=== PATIENT | female | born 1970 ===

== ENCOUNTER 2017-03-31 16:04 | Observation (INO) | payer OTHER ==
[2017-03-31 16:04] VITALS: BMI 35.6
[2017-03-31] MEDS ORDERED: Sodium Chloride 0.9% 1,000 ML IV STA (17:11)
--- NOTE | 2017-03-31 17:31 | ED PDOC ---
HPI: Abdomen Time Seen by Provider: 03/31/17 16:33 Chief Complaint (Nursing): Abdominal Pain Chief Complaint (Provider): Left Lower Adominal Pain History Per: Patient History/Exam Limitations: no limitations Onset/Duration Of Symptoms: Gradual Outside of [place] travel?: No Current Symptoms Are (Timing): Constant Quality Of Discomfort: "Pain" Additional Complaint(s): Natalie Dacosta, a 46 year old female,with a past medical history of kidney stones presents to the ED complaining of left lower quadrant abdominal pain. The patient states that the pain is constant and started around 11pm yesterday. She says that the pain is radiating down the side of her upper thigh. The patient states she has not taken anything for the pain. She states that she had similar pain within the last 3 months and it typically resolves on its spontaneously but this time around its radiating down her legs and that has not happened before. The patient states that she was advised by Dr. Nickerson to get an ultrasound but due to insurance issues she unable to do so. Unfortunately doctor Dr. Nickerson is now and the patient has no PMD.Denies nausea vomiting diarrhea or constipation, urinary symptoms, vaginal discharge/bleeding. Abnormal Vaginal Bleeding: No Past Medical History Reviewed: Historical Data, Nursing Documentation, Vital Signs Vital Signs: Last Vital Signs Temp 98 F 03/31/17 20:39 Pulse 74 03/31/17 16:47 Resp 18 03/31/17 16:47 BP 111/72 03/31/17 16:47 Pulse Ox 98 03/31/17 18:36 - Medical History PMH: Kidney Stones - Surgical History Surgical History: Cholecystectomy - Family History Family History: States: Diabetes (sister) - Social History Current smoker - smoking cessation education provided: No Ex-Smoker (has not smoked in the last 12 months): No Alcohol: None Drugs: Denies - Home Medications Home Medications: Ambulatory Orders Medication Instructions Recorded Albuterol HFA [Ventolin HFA 90 2 puff IH [id number] #1 inh 05/25/16 mcg/actuation (8 g)] Promethazine/Codeine 5 ml PO Q6 #100 ml 05/25/16 [Phenergan/Codeine Oral Syrup] - Allergies Allergies/Adverse Reactions: Allergies Allergy/AdvReac Type Severity Reaction Status Date / Time No Known Allergies Allergy Verified 03/31/17 16:18 Review of Systems ROS Statement: Except As Marked, All Systems Reviewed And Found Negative Gastrointestinal: Positive for: Abdominal Pain (left lower quadrant abdominal pain). Negative for: Nausea, Vomiting, Diarrhea, Constipation Genitourinary Female: Negative for: Dysuria, Frequency, Incontinence, Hematuria , Vaginal Discharge, Vaginal Bleeding Physical Exam - Reviewed Nursing Documentation Reviewed: Yes Vital Signs Reviewed: Yes - Physical Exam Appears: Positive for: Non-toxic, In Acute Distress Head Exam: Positive for: ATRAUMATIC, NORMOCEPHALIC Skin: Positive for: Warm, Dry Eye Exam: Positive for: EOMI, PERRL ENT: Negative for: Pharyngeal Erythema, Tonsillar Exudate Neck: Positive for: Painless ROM, Supple Cardiovascular/Chest: Positive for: Regular Rate, Rhythm. Negative for: Murmur Respiratory: Positive for: Normal Breath Sounds. Negative for: Wheezing Gastrointestinal/Abdominal: Positive for: Bowel Sounds, Soft, Tenderness (LLQ ttp). Negative for: Mass, Distended, Guarding, Other (chavarria's and mcburney's) Back: Positive for: Normal Inspection. Negative for: L CVA Tenderness, R CVA Tenderness Extremity: Positive for: Normal ROM. Negative for: Deformity Lymphatic: Negative for: Adenopathy Neurologic/Psych: Positive for: Alert. Negative for: Motor/Sensory Deficits - Laboratory Results Result Diagrams: 03/31/17 17:37 03/31/17 17:37 - ECG O2 Sat by Pulse Oximetry: 98 (RA) Pulse Ox Interpretation: Normal Medical Decision Making Medical Decision Makin Initial Impression: 46 year old female presenting with left lower quadrant pain Differential: Ovarian Cyst or torsion, Fibroid, Colitis, Diverticulitis, Hernia Initial plan: * Comp Metabolic Panel * Lipase * Upreg * Udip * CBC * NS 1000mls IV 1000mls/hr * Toradol 15mg IV * Admit 1716 * US Transvaginal * Reevaluation 1716 Patient will be placed on ED observation Scribe Attestation Documented by Ami Garza acting as a scribe for Jihan Okeefe MD. Provider Attestation: All medical record entries made by the Scribe were at my direction and personally dictated by me. I have reviewed the chart and agree that the record accurately reflects my personal performance of the history, physical exam, medical decision making, and the department course for this patient. I have also personally directed, reviewed, and agree with the discharge instructions and disposition. ED OBSERVATION Date of observation admission: 03/31/17 Time of observation admission: 17:16 - Observation admission statement Patient is being placed in observation because:: Intensive abdominal workup and pending US. - Progress Note Progress Note: 03/31/17 18:36 Accession No. : [id number] Patient Name / ID : PRANEETH ARBOLEDA / [id number] Exam Date : 03/31/2017 17:57:46 ( Approved ) Study Comment : Sex / Age : F / 46Y Creator : Nya Grigsby MD Dictator : Glass Beveller : Milk Delivery Driver : Nya Grigsby MD Approver2 : Report Date : 03/31/2017 18:20:06 My Comment : HISTORY: LEFT sided pelvic pain COMPARISON: Transvaginal/ pelvic ultrasound performed 02/25/15 TECHNIQUE: Transvaginal pelvic ultrasound FINDINGS: UTERUS: Measures 7.5 x 3.3 x 4.3 cm. ENDOMETRIUM: Measures 3 mm in diameter. CERVIX: No cervical abnormality identified. RIGHT OVARY: Measures 1.7 x 1.0 x 1.9 cm. Blood flow is demonstrated. LEFT OVARY: Measures 2.2 x 1.5 x 1.7 cm. Blood flow is demonstrated. FREE FLUID: No significant free fluid noted. OTHER FINDINGS: None. IMPRESSION: Unremarkable pelvic ultrasound as above. 630p DW pt findings. CT ordered. Pt stable. [facility] Division of Radiology [address] [place] [address] Tel. no. Patient Name: NATALIE DACOSTA Pt. Address: [address] [place] [address] Rec #: [id number] [place] [address]: Maldonado ARCE, Jihan Ozuna Pt CELL Order Location: DEB : 1970 Female Age: 46 Order #: [id number] Reason for exam: LLQ pain CT Scan ABD PELVIS IV CONTRAST ONLY Exam Date: 03/31/17 This imaging exam was performed at [facility] EXAM: CT Abdomen and Pelvis With Intravenous Contrast CLINICAL HISTORY: 46 years old, female; Pain; Abdominal pain; Generalized; Additional info: Llq pain TECHNIQUE: Axial computed tomography images of the abdomen and pelvis with intravenous contrast. This CT exam was performed using one or more of the following dose reduction techniques: automated exposure control, adjustment of the mA and/or kV according to patient size, and/or use of iterative reconstruction technique. Coronal and sagittal reformatted images were created and reviewed. CONTRAST: 95 mL of omnipaque 300 administered intravenously. EXAM DATE/TIME: 03/31/2017 6:34 PM COMPARISON: No relevant prior studies available. FINDINGS: LIMITATIONS: Mild to moderate streak/motion artifact. LOWER THORAX: Small hiatal hernia. ABDOMEN: LIVER: Fatty infiltration of the liver. GALLBLADDER AND BILE DUCTS: Cholecystectomy clips. PANCREAS: No CT evidence of acute pancreatitis. SPLEEN: No acute abnormality of the spleen identified. ADRENALS: No acute abnormality of the adrenal glands identified. KIDNEYS AND URETERS: No acute abnormality of the kidneys identified. No evidence of significant hydrouereteronephrosis. STOMACH AND BOWEL: No acute abnormality of the stomach, small bowel or colon identified. No evidence of bowel obstruction. APPENDIX: Appendix is seen, and is within normal limits in appearance. PELVIS: BLADDER: No acute abnormality of the bladder identified. REPRODUCTIVE:No acute abnormality of the reproductive organs is seen. No acute abnormality of the uterus identified. No evidence of large adnexal masses. ABDOMEN and PELVIS: INTRAPERITONEAL SPACE: No evidence of free intraperitoneal air or fluid. BONES/JOINTS: No acute fractures or other acute bony abnormality noted. SOFT TISSUES: No acute abnormality of the visualized soft tissues is seen. VASCULATURE: No evidence of abdominal aortic aneurysm. No evidence of periaortic hemorrhage. LYMPH NODES: No evidence of diffuse lymphadenopathy. IMPRESSION: - No evidence of significant acute process. No definite cause for pain identified. - See above for remaining findings. Dictated By: Carolynn Rueda MD Dictated Date/Time: 03/31/172037 Signed By: Carolynn Rueda MD Date Signed: 2037 Transcribed By: LEN Transcribe Date/Time : 03/31/172037 [facility]/SRUTHI DW pt findings and plan of care. Pt stable for dc. Pain improved. Naprosmartin and shiyl prn. f/u clinic. Disposition - Clinical Impression Clinical Impression: Abdominal pain, Groin strain Counseled Patient/Family Regarding: Studies Performed, Diagnosis, Need For Followup, Rx Given - Disposition Disposition Time: 17:15 Condition: IMPROVED
[2017-03-31 17:48] LABS: BASO % 0.5 % (0.0-2.0); EOS # 0.1 K/uL (0.0-0.7); EOS % 1.6 % (0.0-4.0); LYMPH # 2.4 K/uL (1.0-4.3); LYMPH % 32.5 % (20.0-40.0); MEAN CELL VOLUME 86.2 fl (81.0-99.0); MEAN CORPUSCULAR HEMOGLOBIN 30.7 pg (27.0-31.0); MEAN CORPUSCULAR HGB CONC 35.6 g/dL (33.0-37.0); MEAN PLATELET VOLUME 8.7 fl (7.2-11.7); MONO # 0.5 K/uL (0.0-0.8); NEUT # 4.2 K/uL (1.8-7.0); NEUT % 58.4 % (50.0-75.0); RBC 3.91 Mil/uL (3.80-5.20); RED CELL DISTRIBUTION WIDTH 12.6 % (11.5-14.5); WHITE BLOOD COUNT 7.2 K/uL (4.8-10.8)
[2017-03-31 18:04] LABS: ALB/GLOB RATIO 1.4 (1.0-2.1); ALBUMIN 4.3 g/dL (3.5-5.0); ALT/SGPT 49 U/L (9-52); AST/SGOT 38 U/L (14-36); BLOOD UREA NITROGEN 13 mg/dl (7-17); CALCIUM 9.3 mg/dL (8.4-10.2); GFR AFRICAN-AMERICAN > 60; GFR NON-AFRICAN AMERICAN > 60; LIPASE 136 U/L (23-300)
--- NOTE | 2017-03-31 18:22 | US ---
HISTORY: LEFT sided pelvic pain COMPARISON: Transvaginal/ pelvic ultrasound performed 02/25/15 TECHNIQUE: Transvaginal pelvic ultrasound FINDINGS: UTERUS: Measures 7.5 x 3.3 x 4.3 cm. ENDOMETRIUM: Measures 3 mm in diameter. CERVIX: No cervical abnormality identified. RIGHT OVARY: Measures 1.7 x 1.0 x 1.9 cm. Blood flow is demonstrated. LEFT OVARY: Measures 2.2 x 1.5 x 1.7 cm. Blood flow is demonstrated. FREE FLUID: No significant free fluid noted. OTHER FINDINGS: None. IMPRESSION: Unremarkable pelvic ultrasound as above.
[2017-03-31] MEDS ORDERED: Iohexol 300 100 ML IJ ONE (18:42)
[2017-03-31] MEDS ORDERED: Sodium Chloride 0.9% 50 ML IV ONE (18:45)
[2017-03-31 20:39] VITALS: TEMP 98
--- NOTE | 2017-03-31 20:39 | CT ---
EXAM: CT Abdomen and Pelvis With Intravenous Contrast CLINICAL HISTORY: 46 years old, female; Pain; Abdominal pain; Generalized; Additional info: Llq pain TECHNIQUE: Axial computed tomography images of the abdomen and pelvis with intravenous contrast. This CT exam was performed using one or more of the following dose reduction techniques: automated exposure control, adjustment of the mA and/or kV according to patient size, and/or use of iterative reconstruction technique. Coronal and sagittal reformatted images were created and reviewed. CONTRAST: 95 mL of omnipaque 300 administered intravenously. EXAM DATE/TIME: 03/31/2017 6:34 PM COMPARISON: No relevant prior studies available. FINDINGS: LIMITATIONS: Mild to moderate streak/motion artifact. LOWER THORAX: Small hiatal hernia. ABDOMEN: LIVER: Fatty infiltration of the liver. GALLBLADDER AND BILE DUCTS: Cholecystectomy clips. PANCREAS: No CT evidence of acute pancreatitis. SPLEEN: No acute abnormality of the spleen identified. ADRENALS: No acute abnormality of the adrenal glands identified. KIDNEYS AND URETERS: No acute abnormality of the kidneys identified. No evidence of significant hydrouereteronephrosis. STOMACH AND BOWEL: No acute abnormality of the stomach, small bowel or colon identified. No evidence of bowel obstruction. APPENDIX: Appendix is seen, and is within normal limits in appearance. PELVIS: BLADDER: No acute abnormality of the bladder identified. REPRODUCTIVE:No acute abnormality of the reproductive organs is seen. No acute abnormality of the uterus identified. No evidence of large adnexal masses. ABDOMEN and PELVIS: INTRAPERITONEAL SPACE: No evidence of free intraperitoneal air or fluid. BONES/JOINTS: No acute fractures or other acute bony abnormality noted. SOFT TISSUES: No acute abnormality of the visualized soft tissues is seen. VASCULATURE: No evidence of abdominal aortic aneurysm. No evidence of periaortic hemorrhage. LYMPH NODES: No evidence of diffuse lymphadenopathy. IMPRESSION: - No evidence of significant acute process. No definite cause for pain identified. - See above for remaining findings.
[2017-03-31 20:57] VITALS: BP 117/57; PULSE 60; RESP 16; O2SAT 100
== END 2017-03-31 21:23 | disposition home or self-care (01) ==
LOC: H.ER 16:04 → H.EROBSV 17:16
PROVIDERS: ADMIT Emergency Medicine; ATTEND Emergency Medicine
DX: R10.32 Left lower quadrant pain (principal); Z87.442 Personal history of urinary calculi; S39.011A Strain of muscle, fascia and tendon of abdomen, initial encounter; X58.XXXA Exposure to other specified factors, initial encounter; Y93.9 Activity, unspecified; Y92.9 Unspecified place or not applicable
CPT/HCPCS: 36415; 74177; 76830; 80053; 81025; 83690; 85025; 99284; G0378; J1885; J7040; Q9967

== ENCOUNTER 2017-10-15 09:18 | Emergency (ER) | payer SELFPAY ==
[2017-10-15 09:21] VITALS: BMI 26.8
[2017-10-15 09:23] VITALS: BP 110/69; PULSE 61; RESP 17; TEMP 983; O2SAT 99
--- NOTE | 2017-10-15 12:13 | ED PDOC ---
HPI: Eye Injury/Pain Time Seen by Provider: 10/15/17 09:40 Chief Complaint (Nursing): Eye Problem Chief Complaint (Provider): Redness of the right eye x 3 days History Per: Patient History/Exam Limitations: no limitations Onset/Duration Of Symptoms: Days Current Symptoms Are (Timing): Still Present Associated Symptoms: Itching Additional Complaint(s): 46 yo female with no medical problems presents with right eye redness x 3 days. PT states she had a headache this morning but it resolved spontaneously. PT reports some itchiness of the right eye, no drainage. No similar episodes in the past. Past Medical History Reviewed: Historical Data, Nursing Documentation, Vital Signs Vital Signs: Last Vital Signs Temp 983 F H 10/15/17 09:21 Pulse 61 10/15/17 09:21 Resp 17 10/15/17 09:21 BP 110/69 10/15/17 09:21 Pulse Ox 99 10/15/17 09:21 - Medical History PMH: Kidney Stones - Surgical History Surgical History: Cholecystectomy - Family History Family History: States: Diabetes (sister) - Living Arrangements Living Arrangements: With Family - Social History Current smoker - smoking cessation education provided: No - Home Medications Home Medications: Ambulatory Orders Medication Instructions Recorded Albuterol HFA [Ventolin HFA 90 2 puff IH [id number] #1 inh 05/25/16 mcg/actuation (8 g)] Promethazine/Codeine 5 ml PO Q6 #100 ml 05/25/16 [Phenergan/Codeine Oral Syrup] Dicyclomine [Bentyl] 20 mg PO BID PRN #30 tab 03/31/17 Naproxen [Naprosyn] 1 tab PO BID PRN #60 tab 03/31/17 Polymyxin/Trimethoprim Sulfate 1 drop XX Q6H 10 Days bottle 10/15/17 [Polytrim Ophth Soln] - Allergies Allergies/Adverse Reactions: Allergies Allergy/AdvReac Type Severity Reaction Status Date / Time No Known Allergies Allergy Verified 03/31/17 16:18 Review of Systems ROS Statement: Except As Marked, All Systems Reviewed And Found Negative Constitutional: Negative for: Fever, Chills Neurological: Positive for: Headache (Resolved ) Physical Exam - Reviewed Nursing Documentation Reviewed: Yes Vital Signs Reviewed: Yes - Physical Exam Appears: Positive for: Well, Non-toxic, No Acute Distress Head Exam: Positive for: ATRAUMATIC, NORMAL INSPECTION, NORMOCEPHALIC Skin: Positive for: Normal Color, Warm, DRY Eye Exam: Positive for: EOMI, PERRL, Other ((+) subconjunctival hemorrhage ). Negative for: Normal appearance ENT: Positive for: Normal ENT Inspection Neck: Positive for: Normal, Painless ROM Cardiovascular/Chest: Positive for: Regular Rate, Rhythm Respiratory: Positive for: Normal Breath Sounds. Negative for: Accessory Muscle Use Back: Positive for: Normal Inspection Extremity: Positive for: Normal ROM Neurologic/Psych: Positive for: Alert, yarrow gatherer II-XII, Oriented, Mood/Affect, Cerebellar Tests, Gait. Negative for: Motor/Sensory Deficits, Aphasia - ECG O2 Sat by Pulse Oximetry: 99 Disposition - Clinical Impression Clinical Impression: Subconjunctival hemorrhage - Disposition Referrals: Provider MARKIE, [Primary Care Provider] - Disposition: Routine/Home Disposition Time: 12:14 Condition: GOOD Prescriptions: Polymyxin/Trimethoprim Sulfate [Polytrim Ophth Soln] 1 drop XX Q6H 10 Days bottle Instructions: Subconjunctival Hemorrhage Forms: [facility] (German)
== END 2017-10-15 12:31 | disposition home or self-care (01) ==
LOC: SUPCPDRO 09:18 → H.ER 09:18
DX: H11.31 Conjunctival hemorrhage, right eye (principal)